=== PATIENT | female | born 1990 | race Caucasian/White ===

== ENCOUNTER 2017-01-28 16:58 | Outpatient (CLI) | payer BC, OTHER | END 2017-01-28 20:58 | disposition home or self-care (01) | LOC: GENOP 16:58 | DX: O47.03 False labor before 37 completed weeks of gestation, third trimester (principal); Z3A.29 29 weeks gestation of pregnancy | CPT/HCPCS: 59025; 81001; 96360; 96366; 96372; G0463; J7120 ==

== ENCOUNTER 2017-01-29 16:38 | Outpatient (CLI) | payer BC, OTHER | END 2017-01-29 17:22 | disposition home or self-care (01) | LOC: GENOP 16:38 | DX: O60.03 Preterm labor without delivery, third trimester (principal); Z3A.29 29 weeks gestation of pregnancy | CPT/HCPCS: 96372; J0702 ==

== ENCOUNTER 2017-03-08 17:25 | Inpatient (IN) | payer BC, OTHER ==
[~2017-03-08] VITALS: Ht 165.1 cm; Wt 102.1 kg
[2017-03-08 22:20] LABS: HEMOGLOBIN 11.6 gm/dl (12.3-15.3); RED BLOOD COUNT 3.97 M/UL (4.00-5.10)
[2017-03-10 03:14] LABS: HEMOGLOBIN 11.6 gm/dl (12.3-15.3)
[2017-03-11] MEDS ORDERED: COLACE 100MG C100 MG PO (10:18)
== END 2017-03-11 10:42 | disposition home or self-care (01) | DRG 775 ==
LOC: GENOP 17:25 → OB 22:14
PROVIDERS: ADMIT Obstetrics & Gynecology
PROC: 10907ZC Drainage of Amniotic Fluid, Therapeutic from Products of Conception, Via Natural or Artificial Opening (ICD-10-PCS; principal; 2017-03-09)
PROC: 10E0XZZ Delivery of Products of Conception, External Approach (ICD-10-PCS; 2017-03-09)
DX: O60.14X0 Preterm labor third trimester with preterm delivery third trimester, not applicable or unspecified (principal); O36.0930 Maternal care for other rhesus isoimmunization, third trimester, not applicable or unspecified; Z3A.35 35 weeks gestation of pregnancy; Z37.0 Single live birth; O99.513 Diseases of the respiratory system complicating pregnancy, third trimester; J45.909 Unspecified asthma, uncomplicated; K21.9 Gastro-esophageal reflux disease without esophagitis; G43.909 Migraine, unspecified, not intractable, without status migrainosus
CPT/HCPCS: 36415; 51702; 81001; 83518; 85014; 85018; 85025; 85461; 86850; 86900; 86901; J2590; J2790; J2795; J3010; J3430; J7120

== ENCOUNTER → 2021-02-05 | Outpatient (CLI) | payer OTHER ==
[~2021-02-05] MED LIST: ASPIRIN CHEWABL81 MG PO; COLACE 100MG C100 MG PO; PERCOCET 5/325 T1 EA PO; PREDNISONE 10 M10 MG GT; [UNRECOGNIZED DRUG - REMARK]
== END ==
LOC: EMI 10:13
DX: G43.109 Migraine with aura, not intractable, without status migrainosus (principal); G44.89 Other headache syndrome; J32.0 Chronic maxillary sinusitis
CPT/HCPCS: 70551

== ENCOUNTER 2021-03-11 09:36 | Emergency (ER) | payer OTHER ==
[~2021-03-11 09:36] MED LIST changes: -PERCOCET 5/325 T1 EA PO; -PREDNISONE 10 M10 MG GT; -[UNRECOGNIZED DRUG - REMARK]
== END 2021-03-11 12:58 | disposition home or self-care (01) ==
LOC: ER1 09:36
DX: G43.909 Migraine, unspecified, not intractable, without status migrainosus (principal); E03.9 Hypothyroidism, unspecified; Z88.1 Allergy status to other antibiotic agents; Z79.899 Other long term (current) drug therapy
CPT/HCPCS: 96374; 96375; 99283; J1200; J1885; J2765; J7030

== ENCOUNTER → 2021-04-03 | Outpatient (CLI) | payer OTHER ==
[~2021-04-03] MED LIST changes: +PERCOCET 5/325 T1 EA PO; +PREDNISONE 10 M10 MG GT; +[UNRECOGNIZED DRUG - REMARK]
== END ==
LOC: KOH-I 13:08
DX: M79.601 Pain in right arm (principal); M25.621 Stiffness of right elbow, not elsewhere classified
CPT/HCPCS: 73060; 73080

== ENCOUNTER 2021-04-11 20:07 | Emergency (ER) | payer OTHER ==
[~2021-04-11 20:07] MED LIST changes: -PERCOCET 5/325 T1 EA PO; -PREDNISONE 10 M10 MG GT; -[UNRECOGNIZED DRUG - REMARK]
[2021-04-11] MEDS ORDERED: PERCOCET 5/325 T1 EA PO ×2 (21:28→22:58)
[2021-04-11] MEDS ORDERED: PREDNISONE 10 M10 MG GT ×2 (21:28→22:58)
[2021-04-11] MEDS ORDERED: [UNRECOGNIZED DRUG - REMARK] (21:36)
== END 2021-04-11 23:04 | disposition home or self-care (01) ==
LOC: ER1 20:07
DX: M75.41 Impingement syndrome of right shoulder (principal)
CPT/HCPCS: 73030; 73080; 99283